=== PATIENT | female | born 1980 | race Caucasian/White ===

== ENCOUNTER 2018-10-13 21:44 | Emergency (ER) | payer SELFPAY ==
[2018-10-13 21:54] VITALS: BP 187/107; PULSE 91; RESP 18; TEMP 37.4; O2SAT 100; BMI 33.5
--- NOTE | 2018-10-13 22:36 | DI.US.S_ITS ---
PROCEDURE: US PELVIC COMPLETE INDICATIONS: RIGHT PAIN, HISTORY OF OVARIAN CYST TECHNIQUE: Real-time scanning was performed of the pelvic organs, with image documentation. Additional endovaginal scanning was necessary due to incomplete visualization of the adnexal and endometrial structures by transabdominal scanning. COMPARISON: [facility], CT, CT ABDOMEN PELVIS W CON, 10/14/2018, 0:18. FINDINGS: Transabdominal scanning: Limited scanning through the kidneys shows no hydronephrosis. No pathologic free abdominal or pelvic fluid. Endovaginal scanning: Uterus: Uterus is normal in size at 5.9 x 2.3 x 3.0 cm. The endometrium measures 2 mm in combined thickness. Ovaries: Not seen IMPRESSION: Ovaries not seen. No acute process is visualized. Concordant with preliminary interpretation. Dictated by: Renetta Amin M.D. on 10/14/2018 at 7:52 Approved by: Renetta Amin M.D. on 10/14/2018 at 7:53
--- NOTE | 2018-10-13 22:39 | ED_ITS ---
HPI - Abdominal Pain General Chief Complaint: Abdominal Pain Stated Complaint: abdominal pain and vomiting Time Seen by Provider: 10/13/18 22:36 Source: patient Mode of arrival: ambulatory Limitations: no limitations History of Present Illness HPI narrative: Patient is a 38-year-old female who presents with right lower abdominal pain. She has a history of a large right ovarian cyst which require surgery but she still has her ovary. She said she had this pain starting around 2:00 a.m.. She was feeling well prior to that. It remains constant throughout the day. She says that this feels a little different than her previous ovarian cyst. She has been nauseated, no fever. She denies any flank pain or painful or frequent urination. No fever. MD complaint: abdominal pain Related Data Previous Rx's Medication Instructions Recorded sulfamethoxazole-trimethoprim 1 tab PO BID 5 Days #10 tab 10/14/18 [Bactrim DS] Allergies Allergy/AdvReac Type Severity Reaction Status Date / Time metoclopramide [From Reglan] Allergy Severe Agitated Verified 10/14/18 00:29 NSAIDS (Non-Steroidal Allergy Severe Anaphylaxis Verified 10/14/18 00:29 Anti-Inflamma Review of Systems Review of Systems GENERAL: Denies chills, fatigue, malaise, fever, sweats, travel HEENT: Denies sinus pain, ear pain, sore throat, difficulty swallowing, neck pain RESPIRATORY: Denies dyspnea, cough, wheezing, hemoptysis, sputum. CARDIOVASCULAR: Denies chest pain, palpitations, orthopnea, edema GASTROINTESTINAL: See HPI : Denies dysuria, frequency, incontinence, hematuria, urinary retention, flank pain. MUSCULOSKELETAL: Denies weakness, joint pain, or bony pain SKIN: No rash, no erythema, no pruritus NEUROLOGIC: Denies weakness, dizziness, headache, numbness, change in speech, confusion PSYCHIATRIC: No concerning psychosocial issues. 12 point review of systems is negative except for those stated above and HPI [facility] Medical History Cyst, ovarian (Acute) Social History (Updated 10/14/18 @ 04:16 by Amanda Rivera DO) Smoking Status: Never smoker alcohol intake: never substance use type: does not use Social History Smoking Status: Never smoker alcohol intake: never substance use type: does not use Exam Initial Vital Signs Initial Vital Signs: Vital Signs Temperature 99.3 F 10/13/18 21:54 Pulse Rate 91 H 10/13/18 21:54 Respiratory Rate 18 10/13/18 21:54 Blood Pressure 187/107 H 10/13/18 21:54 Pulse Oximetry 100 10/13/18 21:54 GENERAL: Well-appearing, well-nourished and in no acute distress. HEENT: Head atraumatic,EOMI, pupils reactive, face symmetric, moist mucous membranes CARDIOVASCULAR: Regular rate and rhythm without murmurs, rubs or gallops. RESPIRATORY: Breath sounds equal bilaterally, no wheezes rales or rhonchi. ABDOMEN: Soft, mild right suprapubic pain no guarding no rebound no right upper quadrant pain flank pain EXTREMITIES: Normal range of motion, no clubbing or edema. Neurovascularly intact NEUROLOGICAL: Alert and oriented x4.Normal gait and speech. Cranial nerves II through XII grossly intact. SKIN: Warm, dry, no laceration, no petechiae, no rashes or lesions. Course Orders Ordered: ED Orders 10/13/18 22:35 Urine Culture Stat Urine Microscopic Stat 10/13/18 22:36 US pelvic complete Stat 10/13/18 22:38 Complete Blood Count AUTO DIFF Stat Comprehensive Metabolic Panel Stat Lipase Stat Partial Thromboplastin Time Stat Prothrombin Time INR Stat 10/14/18 00:04 CT abdomen pelvis w con Stat Discontinued Medications Diphenhydramine HCl (Benadryl) 25 mg IV NOW ONE Stop: 10/14/18 00:30 Last Admin: 10/14/18 00:31 Dose: 25 mg Hydromorphone HCl (Dilaudid) 1 mg SUBCUT Q4H PRN PRN Reason: Pain, Severe (7-10) Last Admin: 10/13/18 23:15 Dose: 1 mg Hydromorphone HCl (Dilaudid) 0.5 mg IV NOW ONE Stop: 10/14/18 00:15 Last Admin: 10/14/18 00:16 Dose: 0.5 mg Methylprednisolone (Solu-Medrol 125 Mg Vial) 125 mg IV NOW ONE Stop: 10/14/18 00:30 Last Admin: 10/14/18 00:31 Dose: 125 mg Ondansetron HCl (Zofran Odt) 4 mg SL NOW ONE Stop: 10/13/18 22:37 Last Admin: 10/13/18 23:15 Dose: 4 mg Ondansetron HCl (Zofran) 4 mg IV NOW ONE Stop: 10/14/18 00:45 Last Admin: 10/14/18 00:49 Dose: 4 mg Ondansetron HCl (Zofran Odt Prepack) 1 bottle MISC SEEINSTR ONE Stop: 10/14/18 01:39 Last Admin: 10/14/18 01:48 Dose: 1 bottle Trimethoprim/Sulfamethoxazole (Bactrim Ds Prepack) 1 bottle MISC SEEINSTR ONE Stop: 10/14/18 01:39 Last Admin: 10/14/18 01:48 Dose: 1 bottle Vital Signs - 8 hr 10/13/18 21:54 10/14/18 02:02 Temperature 99.3 F Pulse Rate 91 H 88 Respiratory Rate 18 15 Blood Pressure 187/107 H 157/97 H Pulse Oximetry 100 96 MDM - Abdominal Pain Lab Data Attestation: I reviewed the patient's lab results. Result diagrams: 10/13/18 22:38 10/13/18 22:38 Lab Results 10/13/18 10/13/18 10/13/18 Range/Units 22:35 22:38 22:38 WBC 6.6 (4.5-11.0) X10^3/uL RBC 4.21 (4.0-5.2) X10^6/uL Hgb 10.7 L (12.0-16.0) g/dL Hct 32.7 L (36-46) % MCV 77.7 L (80-100) fL MCH 25.5 L (26-34) PG MCHC 32.9 (30-36) % RDW 18.0 H (11.6-14.8) % Plt Count 403 H (150-400) X10^3/uL Neut % (Auto) 55.6 (50-75) % Lymph % (Auto) 31.7 (25-40) % Blount % (Auto) 9.6 (3-14) % Eos % (Auto) 2.5 (2-4) % Baso % (Auto) 0.6 (0-2) % Neut # (Auto) 3600 (1877-1044) /uL Lymph # (Auto) 2100 (1115-7948) /uL Blount # (Auto) 600 (0-900) /uL Eos # (Auto) 200 (0-450) /uL Baso # (Auto) 0 (0-100) /uL PT 10.7 (10.1-12.7) SECONDS INR 0.9 (0.9-1.3) APTT 31 (26.4-36.2) SECONDS Sodium (137-145) mmol/L Potassium (3.4-5.1) mmol/L Chloride (98-107) mmol/L Carbon Dioxide (22-32) mmol/L BUN (7-17) mg/dL Creatinine (0.52-1.04) mg/dL Estimated GFR (>60) mL/min BUN/Creatinine Ratio (6-22) Glucose (70-100) mg/dL Calcium (8.4-10.2) mg/dL Total Bilirubin (0.2-1.3) mg/dL AST (14-36) IU/L ALT (9-52) IU/L Alkaline Phosphatase (38-126) U/L Total Protein (6.3-8.2) g/dL Albumin (3.5-5.0) g/dL Globulin (1.7-4.1) g/dL Albumin/Globulin Ratio (1.0-2.8) Lipase (23-300) U/L Urine RBC 30-100/hpf H (0-5/HPF) Urine WBC 0-1/hpf (0-5/HPF) Ur Squamous Epith Cells 0-1 /hpf (0-5/HPF) Urine Bacteria Few (2-10) H (None) Urine Mucus 1+ H (Negative) Ur Culture Indicated? Specimen cultured 10/13/18 Range/Units 22:38 WBC (4.5-11.0) X10^3/uL RBC (4.0-5.2) X10^6/uL Hgb (12.0-16.0) g/dL Hct (36-46) % MCV (80-100) fL MCH (26-34) PG MCHC (30-36) % RDW (11.6-14.8) % Plt Count (150-400) X10^3/uL Neut % (Auto) (50-75) % Lymph % (Auto) (25-40) % Blount % (Auto) (3-14) % Eos % (Auto) (2-4) % Baso % (Auto) (0-2) % Neut # (Auto) (8380-3038) /uL Lymph # (Auto) (8833-1644) /uL Blount # (Auto) (0-900) /uL Eos # (Auto) (0-450) /uL Baso # (Auto) (0-100) /uL PT (10.1-12.7) SECONDS INR (0.9-1.3) APTT (26.4-36.2) SECONDS Sodium 140 (137-145) mmol/L Potassium 4.2 (3.4-5.1) mmol/L Chloride 103 (98-107) mmol/L Carbon Dioxide 30 (22-32) mmol/L BUN 13 (7-17) mg/dL Creatinine 0.80 (0.52-1.04) mg/dL Estimated GFR > 60.0 (>60) mL/min BUN/Creatinine Ratio 16.3 (6-22) Glucose 129 H (70-100) mg/dL Calcium 9.9 (8.4-10.2) mg/dL Total Bilirubin 0.2 (0.2-1.3) mg/dL AST 38 H (14-36) IU/L ALT 47 (9-52) IU/L Alkaline Phosphatase 90 (38-126) U/L Total Protein 7.0 (6.3-8.2) g/dL Albumin 4.1 (3.5-5.0) g/dL Globulin 2.9 (1.7-4.1) g/dL Albumin/Globulin Ratio 1.4 (1.0-2.8) Lipase 62 (23-300) U/L Urine RBC (0-5/HPF) Urine WBC (0-5/HPF) Ur Squamous Epith Cells (0-5/HPF) Urine Bacteria (None) Urine Mucus (Negative) Ur Culture Indicated? Point of care testing: Point of Care Testing Test Results Negative Urine Dip Bedside Urine Glucose Negative Bedside Urine Bilirubin - Negative Bedside Urine Ketone - Negative Urine Specific [place] 1.020 Bedside Urine Occult Blood +++ Bedside Urine pH 6.5 Bedside Urine Protein - Negative Bedside Urine Urobilinogen - Negative Bedside Urine Nitrite - Negative Bedside Urine Leukocytes +/- 15 Esterase Imaging Data Pelvic ultrasound: Radiologist's impression: belt brander report: Ovaries not visualized uterus within normal limits CT scan - abdomen: Radiologist's impression: belt brander report: Tiny gallstone. Apparent thickening of gastric wall but collapsed probably artificial. Correlate clinically to exclude likely gastritis. MDM Narrative Medical decision making narrative: Patient's pain is suprapubic more on the right side. Patient does have leukocytes in her urine and blood. Possible UTI low she does not have pain for frequent urination. No leukocytosis she has been afebrile. However she is still uncomfortable, at this time I recommend we treat her with antibiotics. She overall is feeling little bit better. She is ambulatory. She states that she had cyst removed she is not sure if she had had her appendix removed. Discharge Plan Departure Patient Disposition: Home Clinical Impression: UTI (urinary tract infection) Qualifiers: Urinary tract infection type: acute cystitis Hematuria presence: with hematuria Qualified Code(s): N30.01 - Acute cystitis with hematuria Discharge Date/Time: 10/14/18 02:05 Interventions: ED Discharge Assessment Last Done: 10/14/18 02:02 Instructions: Urinary Tract Infection Activity Restrictions/Additional Instructions: *You have been diagnosed with UTI *What to do: Blood work abdominal CT and pelvic ultrasound are reassuring. *Continue to take medications as directed Bactrim 1 tablet twice a day for 5 days Zofran 4 mg every 6-8 hours as needed for nausea or vomiting *Follow up with your primary care provider in 2-3 days *Return to ER if you should have increasing abdominal pain inability to keep fluid down or any new, worsening or concerning symptoms Prescriptions: New sulfamethoxazole-trimethoprim [Bactrim DS] 800-160 mg tablet 1 tab PO BID 5 Days Qty: 10 RF: 0
--- NOTE | 2018-10-13 22:45 | PC.NURSE ---
2 nurses atempted iv start. no access obtained. provider notified, lab called to draw
[2018-10-13 22:50] LABS: Add Manual Diff / Slide Review NO; Basophils Absolute Auto 0 /uL (0-100); Basophils Percent Auto 0.6 % (0-2); Eosinophils Absolute Auto 200 /uL (0-450); Eosinophils Percent Auto 2.5 % (2-4); Hematocrit 32.7 % (36-46); Hemoglobin 10.7 g/dL (12.0-16.0); Lymphocytes Absolute Auto 2100 /uL (1100-4500); Lymphocytes Percent Auto 31.7 % (25-40); Mean Corpuscular HGB Conc 32.9 % (30-36); Mean Corpuscular Hemoglobin 25.5 PG (26-34); Mean Corpuscular Volume 77.7 fL (80-100); Monocytes Absolute Auto 600 /uL (0-900); Monocytes Percent Auto 9.6 % (3-14); Neutrophils Absolute Auto 3600 /uL (1500-7000); Neutrophils Percent Auto 55.6 % (50-75); Platelet Count 403 X10^3/uL (150-400); Red Blood Cell Count 4.21 X10^6/uL (4.0-5.2); White Blood Cell Count 6.6 X10^3/uL (4.5-11.0)
[2018-10-13 22:51] LABS: Bacteria Urine Few (2-10); Culture Indicated Urine Specimen Cultured; Mucus Urine 1+ (Negative); RBC Urine 30-100/HPF (0-5/HPF); Squamous Epithelial Cell Urine 0-1 /HPF (0-5/HPF); WBC Urine 0-1/HPF (0-5/HPF)
[2018-10-13 23:03] LABS: INR 0.9 (0.9-1.3); Prothrombin Time 10.7 SECONDS (10.1-12.7)
[2018-10-13 23:05] LABS: PTT Partial Thromboplastin Tim 31 SECONDS (26.4-36.2)
[2018-10-13 23:07] LABS: Alanine Aminotransferase 47 IU/L (9-52); Albumin 4.1 g/dL (3.5-5.0); Albumin Globulin Ratio 1.4 (1.0-2.8); Alkaline Phosphatase 90 U/L (38-126); Aspartate Aminotransferase 38 IU/L (14-36); BUN Creatinine Ratio 16.3 (6-22); Bilirubin Total 0.2 mg/dL (0.2-1.3); Blood Urea Nitrogen 13 mg/dL (7-17); Calcium 9.9 mg/dL (8.4-10.2); Carbon Dioxide 30 mmol/L (22-32); Chloride 103 mmol/L (98-107); Estimated Glomerular Filt Rate > 60.0 mL/min (>60); Globulin 2.9 g/dL (1.7-4.1); Glucose 129 mg/dL (70-100); HEMOLYSIS < 15 (0-50); Lipase 62 U/L (23-300); Potassium 4.2 mmol/L (3.4-5.1); Sodium 140 mmol/L (137-145)
[2018-10-13] MEDS: ONDANSETRON 4 MG ODT SL (23:15)
[2018-10-13] MEDS: HYDROMORPHONE 2 MG INJ 1 MG SUBCUT (23:15)
--- NOTE | 2018-10-14 00:04 | DI.CT.S_ITS ---
PROCEDURE: CT ABDOMEN PELVIS W CON INDICATIONS: rlq pain TECHNIQUE: After the administration of intravenous contrast, 5 mm thick sections acquired from the diaphragm to the symphysis. 5 mm coronal and sagittal reformats were acquired. For radiation dose reduction, the following was used: automated exposure control, adjustment of mA and/or kV according to patient size. COMPARISON: None. FINDINGS: Image quality: Excellent. ABDOMEN: Lung bases: Lung bases are clear. Heart size is normal. Solid organs: Liver is normal in size and enhancement. Gallbladder is within normal limits. Biliary system is non dilated. Pancreas enhances normally. Spleen is normal in size and enhancement. No adrenal nodules. Kidneys demonstrate normal size and enhancement, without hydronephrosis. Peritoneum and bowel: Bowel loops demonstrate normal wall thickness and caliber. No free fluid or air. Status post appendectomy. Nodes and vessels: No retroperitoneal or mesenteric adenopathy by size criteria. Aorta and inferior vena cava are normal in size. Miscellaneous: No ventral hernias. PELVIS: Genitourinary: Urinary bladder is decompressed. Miscellaneous: No inguinal hernias or adenopathy. Bones: No suspicious bony lesions. No vertebral body compression fractures. IMPRESSION: 1. Status post appendectomy. 2. No acute process. 3. Concordant with preliminary interpretation. Dictated by: Renetta Amin M.D. on 10/14/2018 at 7:37 Approved by: Renetta Amin M.D. on 10/14/2018 at 7:41
[2018-10-14] MEDS: HYDROMORPHONE 1 MG INJ 0.5 MG IV (00:16)
[2018-10-14] MEDS: diphenhydrAMINE 50 MG/ML VIAL 25 MG IV (00:31)
[2018-10-14] MEDS: methylPREDNISolone 125 MG/2 ML VIAL IV (00:31)
--- NOTE | 2018-10-14 00:44 | PC.NURSE ---
I was summoned to CT room by tech to report pt with severe itching after receiving IV contrast. Pt was scratching arms and legs, no resp distress. No hives. Dr Rivera notified, orders received for IV benedryl and solumederol. Meds given with good effect, pt reports itching is less severe now. Pt requesting med for nausea, Dr Rivera notified, verbal order received for 4mg Zofran IV. Will medicate. Pt now resting with VSS, knows to notify staff immediately for lip/tongue swelling or difficulty breathing.
[2018-10-14] MEDS: ONDANSETRON 4 MG/2 ML INJ IV (00:49)
[2018-10-14] MEDS: ONDANSETRON 4 MG ODT PREPACK 1 BOTTLE MISC (01:48)
[2018-10-14] MEDS: TRIMETH/SULFA 160/800 PREPACK 1 BOTTLE MISC (01:48)
[2018-10-14 02:02] VITALS: BP 157/97; PULSE 88; RESP 15; O2SAT 96
== END 2018-10-14 02:05 | disposition home or self-care (01) ==
PROVIDERS: Emergency Provider Emergency Medicine
DX: N30.01 Acute cystitis with hematuria (principal)
CPT/HCPCS: 36415; 74177; 76830; 76856; 80053; 81003; 81015; 81025; 83690; 85025; 85610; 85730; 87086; 96372; 96374; 96375; 99282; 99284; J1170; J1200; J2405; J2930; Q9967